=== PATIENT | female | born 1935 | race Caucasian/White ===

== ENCOUNTER → 2023-10-29 13:59 | Outpatient (REF) | payer MEDICARE, SELFPAY | LOC: HWRAD 13:59 | PROVIDERS: ATTENDING PHYSICIAN Family Medicine | DX: M54.6 Pain in thoracic spine (principal); R07.81 Pleurodynia; M81.0 Age-related osteoporosis without current pathological fracture | CPT/HCPCS: 71101; 72072 ==

== ENCOUNTER → 2023-11-05 07:07 | Outpatient (REF) | payer MEDICARE, SELFPAY | LOC: HWRAD 07:07 | PROVIDERS: ATTENDING PHYSICIAN Family Medicine | DX: R93.89 Abnormal findings on diagnostic imaging of other specified body structures (principal) | CPT/HCPCS: 71250 ==

== ENCOUNTER → 2023-12-24 06:24 | Day surgery (SDC) | payer MEDICARE, SELFPAY | LOC: GI 06:24 | PROVIDERS: ATTENDING PHYSICIAN Internal Medicine Gastroenterology | DX: R93.3 Abnormal findings on diagnostic imaging of other parts of digestive tract (principal); K64.8 Other hemorrhoids; K57.30 Diverticulosis of large intestine without perforation or abscess without bleeding; K63.89 Other specified diseases of intestine; D12.3 Benign neoplasm of transverse colon; D12.4 Benign neoplasm of descending colon | CPT/HCPCS: 45385; 45380; 88305 ==

== ENCOUNTER 2024-01-21 11:16 | Emergency (ER) | payer MEDICARE, SELFPAY ==
[2024-01-21 11:18] VITALS: BP 143/59
--- NOTE | 2024-01-21 12:35 | ED.GENMED ---
History of Present Illness
General
Chief Complaint: Fall
Source: patient and family
Exam Limitations: dementia
Time Seen by Provider: 01/21/24 12:03
Nursing documentation reviewed up to this point in time: agreed with
History of Present Illness
History of Present Illness:
88 y/o F with h/o cad, htn, hld, mild dementia
had a fall last night when she was getting her things from the car, she didn't see a cooler on the ground and tripped and landed on her face on the asphalt. she had no LOC. recalls the event.
mild swelling/bruising right lateral superior orbit and pain in the righ tribs with omvement
no confusion new from basleine poor memory, sob, weakness, nubmness, abd pain, back pain, hip pain
pt apparently has had some concern for abnormal PET scan uptake in the setting of previous colon cancer, uptake in upper spine and lung that is just being surveilled at this time
she has not had any lower back pain, upper back pain from fall
no thinners
tetanus unknown
Past History
Past History
ED Past Medical History: CAD, GERD, HTN, Hypercholesterolemia, Hypothyroidism, Psychiatric (Anxiety) and Other (Migraine cephalgias, irritable bowel syndrome. Microscopic colitis. Sleep apnea, Ulcers, Hiatal hernia)
ED Past Surgical History: Bowel resection, Cardiac (History of coronary stent), Orthopedic (Left carpal tunnel. Right and left knee surgery. Left ankle surgery, Rotator cuff surgery) and Other (Thyroidectomy)
Social History
Tobacco: Former smoker
Alcohol: Occasional
Drug: None
Personal:
Living: assisted living ([facility])
Employment: Retired
Family History
Family History: Hypertension
Review of Systems
Review of Systems
Allergies reviewed?: Yes
All Other Systems: Not applicable
Phy Exam
Physical Exam
Physical Exam:
GENERAL: Alert , in no apparent distress
HEAD: R superior lateral orbital swellign/hematoma mild and few superficial abrasions
NECK: no midline tenderness, active ROM intact, no paraspinal muscle tenderness; pain with rotation of neck
EYE: pupils equal and reactive, EOMs intact. no subconjunctival hemorrhage
ENT: o/p clr, mmm. no hemotympanum
CARDIAC: Regular rate and rhythm, no edema
chest wall: righ tlateral rib tendneress, mid ribs
LUNGS: Clear breath sounds bilaterally, no acute respiratory distress, no wheezes/rales/rhonchi
ABDOMEN: Soft, without focal tenderness, no r/g, no cvat
NEUROLOGICAL: Alert and oriented, no focal neuro deficits, CN intact, 5/5 strength, sensation intact
SKIN: Warm and dry,
MUSCULOSKELETAL: No edema, well perfused.
PSYCH: Normal and appropriate interaction.
Course
Orders/Labs/Results
Orders:
Orders
01/21/24 12:29
CT Cervical Spine W/o Iv Contr Urgent
Comment:
Reason For Exam: fall right sided pain
CT Chest W/o Iv Contrast Urgent
Comment:
Reason For Exam: fall right rib pain, h/o back lytic lesion?
CT Head W/o Iv Contrast Urgent
Comment:
Reason For Exam: fall right upper orbital hematoma
Tetanus/Diphth/Acelpertussis [Adacel] 0.5 ml IM .ONCE ONE
Vital Signs
Initial and Last Documented VS:
Initial Vital Signs
Temp Pulse Resp BP Pulse Ox
98.9 F 68 14 143/59 96
01/21/24 11:18 01/21/24 11:18 01/21/24 11:18 01/21/24 11:18 01/21/24 11:18
Last Documented Vital Signs
Temp Pulse Resp BP Pulse Ox
98.9 F 68 14 134/67 97
01/21/24 11:18 01/21/24 11:18 01/21/24 11:18 01/21/24 15:01 01/21/24 15:15
MDM/Problems Addressed
Differential Diagnosis Includes:
contusion, rib fx, head injury
MDM/Problems Addressed:
88 y/o F with h/o cad
no thinners
some poor memory and poor calance, frequent falls
tripped last night over a cooler whne they were unpackign their car and fell onto ground hitting face
also right ribs
no LOC, no vomiting, no headache
mild bruising to face, an dpain in right ribs
no sob
well appearing
contsuion/abrasions right forehead region
neck notnender midlin but pain with rotation
right rib tenderness, no bruising
abdomen nontender
pelvis nomrmal
walking well
ct head/neck/chest no trauma
known pulm nodules seen on PET scan
d/c home uincentive spirometer
*Critical Care Note
Total Time (30-74mins, 75-104mins- exclusive of procedures): Not Applicable
ED Attending Note
-
Portions of this chart may have been created with voice recognition software.� Occasional wrong word or��sound alike� substitutions may have occurred due to the inherent limitations of voice recognition software.
Discharge Plan
Departure
Patient Disposition: Home (Routine Discharge)
Date of Disposition: 01/21/24
Time of Disposition: 15:20
Patient with high blood pressure during this ER visit?: No
Condition: Fair
Covid-19: Not Applicable
Discharge Problem:
Minor closed head injury, Contusion of face, Contusion of rib
Instructions: Head Injury in Adults (DC), Contusion (DC)
Prescriptions:
No Action
aspirin 81 MG tablet,delayed release (DR/EC)
81 mg PO DAILY
metoprolol succinate 25 MG tablet extended release 24 hr
25 mg PO DAILY
cyanocobalamin (vitamin B-12) 1,000 MCG tablet
500 mcg PO DAILY
atorvastatin 10 MG tablet
10 mg PO DAILY
levothyroxine 75 MCG tablet
75 mcg PO DAILY
ibuprofen 200 MG tablet
400 mg PO DAILYPRN PRN (Reason: MILD PAIN)
multivitamin with folic acid [Tab-A-Byron] 1 TABLET tablet
1 tab PO DAILY
duloxetine 20 mg Capsule,Delayed Release(Dr/Ec)
20 mg PO DAILY
Florastor
1 tab PO DAILY
Referrals:
Tita Ovalles DO [Family Provider] -
Activity Restrictions/Additional Instructions:
Your CAT scans did not show any signs of fracture. You likely bruised your ribs in your face. Ice off-and-on. Use the incentive spirometer while you are awake to make sure you do not get pneumonia. Do this every 2 hours. Take Tylenol as needed
for pain. Return for severe symptoms like trouble breathing, fever, cough, confusion, severe headache or any concerns.
Interventions
Interventions:
*Risk Screen - Suicide Last Done: 01/21/24 13:13
*General Assessment Last Done: 01/21/24 11:18
*Neglect/Abuse Screening Last Done: 01/21/24 13:13
ED- Fall Risk Assessment Last Done: 01/21/24 13:13
*ED COVID-19 Vaccine History Last Done: 01/21/24 11:18
*Nursing Disposition Last Done: 01/21/24 15:32
ED-Musculoskeletal Assessment Last Done: 01/21/24 13:13
ED- Neurological Assessment Last Done: 01/21/24 13:13
ED-Skin Assessment Last Done: 01/21/24 13:13
Discharge Date and Time
Discharge Date/Time: 01/21/24 15:33
Print Language: BELARUSIAN
[2024-01-21] MEDS: ADACEL 0.5 ML IM (12:47)
[2024-01-21 13:09] VITALS: BP 150/78
[2024-01-21 14:41] VITALS: BP 124/62
[2024-01-21 15:01] VITALS: BP 134/67
== END 2024-01-21 15:33 | disposition home or self-care (01) ==
LOC: EMR 11:16
PROVIDERS: EMERGENCY PHYSICIAN Emergency Medicine; FAMILY PHYSICIAN Family Medicine
DX: S00.83XA Contusion of other part of head, initial encounter (principal); S20.219A Contusion of unspecified front wall of thorax, initial encounter; S40.021A Contusion of right upper arm, initial encounter; S00.81XA Abrasion of other part of head, initial encounter; S09.90XA Unspecified injury of head, initial encounter; W18.09XA Striking against other object with subsequent fall, initial encounter; Y93.89 Activity, other specified; Z23 Encounter for immunization; I25.10 Atherosclerotic heart disease of native coronary artery without angina pectoris; I10 Essential (primary) hypertension; F03.A4 Unspecified dementia, mild, with anxiety; E03.9 Hypothyroidism, unspecified; G43.909 Migraine, unspecified, not intractable, without status migrainosus; K21.9 Gastro-esophageal reflux disease without esophagitis; E78.00 Pure hypercholesterolemia, unspecified; K58.9 Irritable bowel syndrome, unspecified; M19.90 Unspecified osteoarthritis, unspecified site; M81.0 Age-related osteoporosis without current pathological fracture; G47.30 Sleep apnea, unspecified; K52.89 Other specified noninfective gastroenteritis and colitis; Z98.0 Intestinal bypass and anastomosis status; Z95.5 Presence of coronary angioplasty implant and graft; Z85.038 Personal history of other malignant neoplasm of large intestine; Z87.891 Personal history of nicotine dependence; R29.6 Repeated falls
CPT/HCPCS: 99284; 90471; 70450; 71250; 72125; 90715

== ENCOUNTER → 2024-02-22 11:21 | Outpatient (REF) | payer MEDICARE, SELFPAY | LOC: HWRAD 11:21 | PROVIDERS: ATTENDING PHYSICIAN Internal Medicine Critical Care Medicine; FAMILY PHYSICIAN Family Medicine | DX: R91.1 Solitary pulmonary nodule (principal) | CPT/HCPCS: 71250 ==

== ENCOUNTER 2024-06-13 12:35 | Emergency (ER) | payer MEDICARE, SELFPAY ==
[2024-06-13 12:38] VITALS: BP 140/57
[2024-06-13 12:39] VITALS: BP 140/57
[2024-06-13 12:59] LABS: % Basophils 0.9 % (0-2); % Eosinophils 2.1 % (0-6); % Immature Granulocytes 0.2 % (0-0.5); % Monocytes 7.2 % (1.7-9.3); % Neutrophils 62.6 % (42.2-75.2); Absolute Eosinophils 0.1 10^3/uL (0-0.7); Absolute Lymphocytes 1.2 10^3/uL (1.2-3.4); Absolute Monocytes 0.3 10^3/uL (0.1-0.6); Absolute Neutrophils 2.7 10^3/uL (1.4-6.5); Hematocrit 40.6 % (37.0-47.0); Hemoglobin 13.7 g/dL (12.0-16.0); Mean Corp Hgb Conc. 33.7 g/dL (33.0-37.0); Mean Corpuscular Hgb 32.9 pg (27.0-31.0); Mean Corpuscular Volume 97.4 fL (81.0-99.0); Mean Platelet Volume 9.9 fL (7.4-10.4); Nucleated Red Blood Cells % 0 %; Platelet Count 231 10^3/uL (130-400); Red Blood Cell Count 4.17 10^6/uL (4.20-5.40); Red Cell Dist. Width 12.7 % (11.5-14.5); White Blood Cell Count 4.3 10^3/uL (4.8-10.8)
[2024-06-13 13:00] VITALS: BP 125/59
--- NOTE | 2024-06-13 13:06 | ED.GENMED ---
History of Present Illness
<Gloria Harrison PA-C - Last Filed: 06/13/24 17:57>
General
Chief Complaint: Chest Pain
Source: patient and spouse (Spoke to patient's on phone)
Exam Limitations: dementia
Time Seen by Provider: 06/13/24 12:38
Nursing documentation reviewed up to this point in time: agreed with
History of Present Illness
History of Present Illness:
Patient is an 88-year-old female with history dementia, CAD, hypertension, hyperlipidemia presenting to the emergency department via EMS for evaluation of chest pain. Patient unable to contribute much to history due to dementia. Although�patient
does currently deny any complaints including chest pain, shortness of breath, dizziness/lightheadedness, severe back pain, headache, etc.
I did call and speak with patient's on the phone who states that patient was sitting on the couch this morning around 11:10 AM when she stated 'I am going to 'she then said she was having some left-sided chest discomfort. Patient has
been then promptly called 911. He states that she never appeared to be in any distress. Otherwise she is at her mental status and was acting normally this morning.
Past History
<Gloria Harrison PA-C - Last Filed: 06/13/24 17:57>
Past History
ED Past Medical History: CAD, GERD, HTN, Hypercholesterolemia, Hypothyroidism, Psychiatric (Anxiety) and Other (Migraine cephalgias, irritable bowel syndrome. Microscopic colitis. Sleep apnea, Ulcers, Hiatal hernia)
ED Past Surgical History: Bowel resection, Cardiac (History of coronary stent), Orthopedic (Left carpal tunnel. Right and left knee surgery. Left ankle surgery, Rotator cuff surgery) and Other (Thyroidectomy)
Social History
Tobacco: Former smoker
Alcohol: Occasional
Drug: None
Personal:
Living: assisted living ([facility])
Employment: Retired
Family History
Family History: Hypertension
Review of Systems
<Gloria Harrison PA-C - Last Filed: 06/13/24 17:57>
Review of Systems
Allergies reviewed?: Yes
All Other Systems: ROS reviewed and negative except as documented in HPI and ROS
Phy Exam
<Gloria Harrison PA-C - Last Filed: 06/13/24 17:57>
Physical Exam
Physical Exam:
Vitals: Mildly hypertensive, otherwise vital signs stable. Afebrile
General: Patient is well appearing, no acute distress
Skin: Warm and dry, no rashes or lesions
Head: Normocephalic, atraumatic
Eyes: Sclera nonicteric. EOMs intact. No nystagmus.
Throat: Protecting airway
Neck: Normal ROM, no cervical spine tenderness, no meningismus
Cardiac: Regular rate and rhythm, no murmurs. No reproducible chest wall tenderness. No rash
Pulm: Normal respiratory effort, no wheezes, rales, rhonchi heard on exam.
Abdomen: Abdomen soft. No abdominal tenderness.
Extremities: No evidence of cyanosis or edema. Palpable DP pulse bilaterally. Negative Homans' sign bilaterally
Neuro: AAOx1 to person, not place or time. No focal neurologic deficits
Psychiatric: Normal affect.
Scores
<Gloria Harrison PA-C - Last Filed: 06/13/24 17:57>
Heart Score for Chest Pain Patients
STEMI patient?: No
History: Slightly or Non-Suspicious
ECG: Normal
Age: >/= 65 years
Risk Factors: >/= 3 Risk Factors or History of CAD
Troponin: </= Normal Limit
Heart Score for Chest Pain Patients: 4
Heart Score Risk: 20.3% MACE over next 6 weeks
Course
<Gloria Harrison PA-C - Last Filed: 06/13/24 17:57>
Orders/Labs/Results
Orders:
Orders
06/13/24 12:40
Electrocardiogram (*1) Urgent
Reason for Study: Chest Pain
EKG- Treatment ONCE
06/13/24 12:46
CMP [Comprehensive Metabolic Panel] Urgent
Complete Blood Count/With Diff Urgent
Troponin I Urgent
06/13/24 12:54
CR Chest - 2 Views Urgent
Comment:
Reason For Exam: chest pain
06/13/24 15:07
Troponin I Urgent
06/13/24 15:45
Electrocardiogram (*1) Urgent
Reason for Study: Chest Pain
EKG- Treatment ONCE
06/13/24 15:52
Electrocardiogram (*1) Stat
Reason for Study: Chest Pain
Abnormal Lab Results
06/13/24
12:46
WBC 4.3 L 10^3/uL
(4.8-10.8)
RBC 4.17 L 10^6/uL
(4.20-5.40)
MCH 32.9 H pg
(27.0-31.0)
Glucose 130 H mg/dl
(70-99)
06/13/24 12:46
06/13/24 12:46
Vital Signs
Initial and Last Documented VS:
Initial Vital Signs
Temp Pulse Resp BP Pulse Ox
98.1 F 72 18 140/57 98
06/13/24 12:38 06/13/24 12:38 06/13/24 12:38 06/13/24 12:38 06/13/24 12:38
Last Documented Vital Signs
Temp Pulse Resp BP Pulse Ox
98.1 F 67 19 156/67 98
06/13/24 12:38 06/13/24 16:30 06/13/24 16:30 06/13/24 16:00 06/13/24 16:30
<Abner Melissa, DO - Last Filed: 06/13/24 13:50>
Orders/Labs/Results
Orders:
Orders
06/13/24 12:40
Electrocardiogram (*1) Urgent
Reason for Study: Chest Pain
EKG- Treatment ONCE
06/13/24 12:46
CMP [Comprehensive Metabolic Panel] Urgent
Complete Blood Count/With Diff Urgent
Troponin I Urgent
06/13/24 12:54
CR Chest - 2 Views Urgent
Comment:
Reason For Exam: chest pain
06/13/24 15:07
Troponin I Urgent
06/13/24 15:45
Electrocardiogram (*1) Urgent
Reason for Study: Chest Pain
EKG- Treatment ONCE
06/13/24 15:52
Electrocardiogram (*1) Stat
Reason for Study: Chest Pain
Abnormal Lab Results
06/13/24
12:46
WBC 4.3 L 10^3/uL
(4.8-10.8)
RBC 4.17 L 10^6/uL
(4.20-5.40)
MCH 32.9 H pg
(27.0-31.0)
Glucose 130 H mg/dl
(70-99)
06/13/24 12:46
06/13/24 12:46
Vital Signs
Initial and Last Documented VS:
Initial Vital Signs
Temp Pulse Resp BP Pulse Ox
98.1 F 72 18 140/57 98
06/13/24 12:38 06/13/24 12:38 06/13/24 12:38 06/13/24 12:38 06/13/24 12:38
Last Documented Vital Signs
Temp Pulse Resp BP Pulse Ox
98.1 F 67 19 156/67 98
06/13/24 12:38 06/13/24 16:30 06/13/24 16:30 06/13/24 16:00 06/13/24 16:30
<Gloria Harrison PA-C - Last Filed: 06/13/24 17:57>
MDM/Problems Addressed
Differential Diagnosis Includes:
Not limited to: Muscle strain, costochondritis, myocarditis, pneumonia, pericarditis, ACS
MDM/Problems Addressed:
88-year-old female history as documented presenting with chest pain. History taking very limited due to patient's history of dementia although did speak with patient's on phone. No associated shortness of breath or complains of back pain.
No history of infectious symptoms. Patient mildly hypertensive on arrival otherwise with stable vital signs. She is afebrile. On exam�patient is very well-appearing, no apparent distress. She denies any current symptoms. Cardio/pulmonary
assessment unremarkable. Abdomen soft and nontender. No evidence of rash to suggest zoster. No evidence or history of trauma. No lower extremity edema. Initial EKG shows normal sinus rhythm without any acute ischemic changes. Patient very
well-appearing. Will check labs and trend troponins. Will check chest x-ray.
Update: Labs reviewed. No clinically significant abnormalities. Initial troponin undetectable. Will repeat. Chest x-ray without acute disease. Patient remains asymptomatic and very well-appearing.
Update 4 PM. Repeat troponin remains undetectable with nonischemic EKG. Patient has been asymptomatic throughout entire duration of emergency department. She is ambulating independently around room without symptoms. At this point�patient has had
2 negative troponins, very low suspicion for acute coronary syndrome. Patient otherwise well-appearing and feels stable for discharge home with primary care/cardiology follow-up outpatient. Recurrent precautions discussed with on phone.
Patient will be transported home.
Chronic conditions affecting care:
CAD, hypertension, hyperlipidemia, dementia
Acute Exacerbation and/or Progression of Chronic Illness:
Acutely hypertensive
<Gloria Harrison PA-C - Last Filed: 06/13/24 17:57>
*Radiology
Radiology exam reviewed: preliminary read by ED provider (Reviewed by me-no acute disease) and radiology read reviewed
*Pulse Oximetry
Patient hypoxic: no
*EKG
Interpreted by ED Provider?: Yes
EKG Intrepretation Date: 06/13/24
Interpretation: normal
Comparison EKG: changes noted
Heart Rate: 63
Rate: normal
Rhythm: sinus
[place]: normal axis
Interval: normal QT interval
QRS Pattern: normal QRS
Ischemia: no ischemia
*Manager Development Interpretation
Rate: normal
Interpretation: normal
Heart Rate: 64
Rhythm: sinus
*Critical Care Note
Total Time (30-74mins, 75-104mins- exclusive of procedures): Not Applicable
<Gloria Harrison PA-C - Last Filed: 06/13/24 17:57>
Patient Management
Escalation/DeEscalation of care consider admission/obs:
Considered admission although patient asymptomatic with 2 negative troponins�doubt ACS or other acute cardiac emergency at this time
ED Attending Note
<Gloria Harrison PA-C - Last Filed: 06/13/24 17:57>
-
Portions of this chart may have been created with voice recognition software.� Occasional wrong word or��sound alike� substitutions may have occurred due to the inherent limitations of voice recognition software.
<Abner Melissa DO - Last Filed: 06/13/24 13:50>
ED Attending Note
Patient seen and examined by attending physician: Yes
I performed a history and physical exam of patient and discussed management with resident, I reviewed resident's note and agree with documented findings and plan of care.: Yes
ED Attending Note:
seen with PA, agree with ap
well appearing demented female with chest pain
Discharge Plan
Departure
Patient Disposition: Home (Routine Discharge)
Date of Disposition: 06/13/24
Time of Disposition: 15:56
Patient with high blood pressure during this ER visit?: Yes
Condition: Good
Covid-19: Not Applicable
Discharge Problem:
Chest pain
Instructions: Chest pain, BLOOD PRESSURE
Prescriptions:
No Action
aspirin 81 MG tablet,delayed release (DR/EC)
81 mg PO DAILY
metoprolol succinate 25 MG tablet extended release 24 hr
25 mg PO DAILY
cyanocobalamin (vitamin B-12) 1,000 MCG tablet
500 mcg PO DAILY
atorvastatin 10 MG tablet
10 mg PO DAILY
levothyroxine 75 MCG tablet
75 mcg PO DAILY
ibuprofen 200 MG tablet
400 mg PO DAILYPRN PRN (Reason: MILD PAIN)
multivitamin with folic acid [Tab-A-Byron] 1 TABLET tablet
1 tab PO DAILY
duloxetine 20 mg Capsule,Delayed Release(Dr/Ec)
20 mg PO DAILY
Florastor
1 tab PO DAILY
Referrals:
Marita Fowler MD [Family Provider] - Follow up in 5-7 days
Activity Restrictions/Additional Instructions:
RETURN TO THE EMERGENCY DEPARTMENT WITH ANY CHEST PAIN, SHORTNESS OF BREATH/DIFFICULTY BREATHING, WORSENING IN CURRENT SYMPTOMS, OR ANY OTHER CONCERNS
-Continue to take your medications as prescribed. Follow-up with primary care/cardiology for further evaluation/management as needed.
-Stay well-hydrated and get plenty of rest.
Monitor your symptoms closely and return to the emergency department with any acute worsening/new symptoms or any other concerns
Interventions
Interventions:
*Risk Screen - Suicide Last Done: 06/13/24 12:38
*General Assessment Last Done: 06/13/24 12:38
*Neglect/Abuse Screening Last Done: 06/13/24 12:38
ED- Fall Risk Assessment Last Done: 06/13/24 16:47
*ED COVID-19 Vaccine History Last Done: 06/13/24 12:38
*Nursing Disposition Last Done: 06/13/24 16:47
ED- Cardiac Assessment Last Done: 06/13/24 12:38
Discharge Date and Time
Discharge Date/Time: 06/13/24 16:48
Print Language: GERMAN
[2024-06-13 13:12] LABS: ALT (SGPT) 16 U/L (0-35); AST (SGOT) 26 U/L (14-36); Alkaline Phosphatase 73 U/L (38-126); Blood Urea Nitrogen 14 mg/dl (7-17); Calcium 8.9 mg/dl (8.4-10.2); Carbon Dioxide 25 mmol/L (22-30); Chloride 105 mmol/L (98-107); Glucose 130 mg/dl (70-99); Potassium 4.2 mmol/L (3.5-5.1); Sodium 139 mmol/L (135-145); Total Bilirubin 0.7 mg/dl (0.2-1.3); Total Protein 6.5 g/dl (6.3-8.2); eGFR > 60.00
[2024-06-13 13:22] LABS: Troponin I < 0.012 ng/ml
[2024-06-13 14:00] VITALS: BP 127/67
[2024-06-13 15:06] VITALS: BP 133/79
[2024-06-13 15:40] LABS: Troponin I < 0.012 ng/ml
[2024-06-13 16:00] VITALS: BP 156/67
== END 2024-06-13 16:48 | disposition home or self-care (01) ==
LOC: EMR 12:35
PROVIDERS: Physician Assistant; EMERGENCY PHYSICIAN Emergency Medicine; FAMILY PHYSICIAN Internal Medicine Geriatric Medicine
DX: R07.89 Other chest pain (principal); I25.10 Atherosclerotic heart disease of native coronary artery without angina pectoris; I10 Essential (primary) hypertension; E78.00 Pure hypercholesterolemia, unspecified; E03.9 Hypothyroidism, unspecified; F03.94 Unspecified dementia, unspecified severity, with anxiety; G47.30 Sleep apnea, unspecified; I49.1 Atrial premature depolarization; K21.9 Gastro-esophageal reflux disease without esophagitis; K58.9 Irritable bowel syndrome, unspecified; Z82.49 Family history of ischemic heart disease and other diseases of the circulatory system; Z87.891 Personal history of nicotine dependence; Z95.5 Presence of coronary angioplasty implant and graft
CPT/HCPCS: 99283; 71046; 80053; 84484; 85025; 93005

== ENCOUNTER → 2024-08-22 10:25 | Outpatient (REF) | payer MEDICARE, SELFPAY | LOC: HWRAD 10:25 | PROVIDERS: ATTENDING PHYSICIAN Internal Medicine Critical Care Medicine; FAMILY PHYSICIAN Internal Medicine Geriatric Medicine | DX: R91.8 Other nonspecific abnormal finding of lung field (principal) | CPT/HCPCS: 71250 ==

== ENCOUNTER 2024-09-29 15:46 | Emergency (ER) | payer MEDICARE, SELFPAY ==
[2024-09-29 16:03] VITALS: BP 145/82
--- NOTE | 2024-09-29 18:02 | ED.GENMED ---
History of Present Illness
General
Chief Complaint: Abdominal Pain
Time Seen by Provider: 09/29/24 17:58
History of Present Illness
History of Present Illness:
TIME OF INITIAL ENCOUNTER:
HPI: The patient comes in due to abdominal pain. She is seen at [facility] and was recommended to come here for evaluation including CT imaging. She has a history of dementia and is a very limited historian. I spoke to the at bedside.
He tells me that over the last several months, the patient has been having intermittent episodes of severe abdominal pain primarily in the central area of the abdomen. There has been weight loss. At times she has had poor p.o. intake. There has
not been any vomiting or diarrhea. She is known to Dr. Ji and has an appointment this coming Thursday. She saw her provider at [facility] who wanted her to come in here for further evaluation. Dr. Ji put the patient on Prilosec 3
days ago.
EXAM:
GENERAL: Appears in no distress
HEENT: Moist oral mucosa
CARDIOVASCULAR: Regular rate and rhythm
PULMONARY: No respiratory distress, breathing is nonlabored, equal and clear breath sounds
ABDOMEN: Soft and nontender with no peritoneal signs
NEUROLOGIC: The patient has evidence of dementia, not oriented to month or place, strength is equal in all extremities
EXTREMITIES: Moves all extremities equally, no tenderness, trace lower extremity edema
PYSCHIATRIC: Very limited historian, poor insight and judgment
NUMBER AND COMPLEXITY OF PROBLEMS ADDRESSED AT THE ENCOUNTER
� Chronic conditions affecting care: Dementia, constipation, 'stomach ulcers', CAD, high blood pressure, hiatal hernia
� Acute Exacerbation and/or Progression of Chronic Illness: This is an acute but recurring problem
� Differential Diagnosis includes: Exacerbation of hiatal hernia, stomach ulcers, gastritis, duodenitis, bowel perforation unlikely as she has no significant tenderness
AMOUNT AND/OR COMPLEXITY OF DATA TO BE REVIEWED AND ANALYZED
� I performed an independent evaluation of and my interpretation is:
EKG: Sinus 78, nonspecific ST abnormality, PACs
CT: CAT scan of the abdomen pelvis shows no acute abnormality
X-rays:
Laboratory Studies: Patient's white count and hemoglobin are normal, chemistries including lipase and LFTs normal
Other:
� Review of other/old records: Earlier this year, the patient was seen in the emerged part with chest pain
� Clinical information was obtained by an independent historian: I spoke to the at bedside his main historian
� Prescriptions/Medications Considered but not given:
� Further testing considered but not performed:
RISK OF COMPLICATIONS AND/OR MORBIDITY OR MORTALITY OF PATIENT MANAGEMENT
� Social determinants of health affecting care: Patient resides in [facility]
� Discussion with other providers:
� Escalation of care including admission/observation vs risk of discharge considered: The patient has very minimal abdominal tenderness and is well-appearing. CT imaging and labs obtained but were unremarkable. Unclear
etiology. She has follow-up with Dr. Ji this coming week and has started Prilosec a couple of days ago.
ANY OTHER UPDATES:
8 PM: I reassessed patient, she appears comfortable. Unclear etiology of patient's symptoms over the last few months.
Past History
Past History
ED Past Medical History: CAD, GERD, HTN, Hypercholesterolemia, Hypothyroidism, Psychiatric (Anxiety) and Other (Migraine cephalgias, irritable bowel syndrome. Microscopic colitis. Sleep apnea, Ulcers, Hiatal hernia)
ED Past Surgical History: Bowel resection, Cardiac (History of coronary stent), Orthopedic (Left carpal tunnel. Right and left knee surgery. Left ankle surgery, Rotator cuff surgery) and Other (Thyroidectomy)
Social History
Tobacco: Former smoker
Alcohol: Occasional
Drug: None
Personal:
Living: assisted living ([facility])
Employment: Retired
Family History
Family History: Hypertension
Phy Exam
Physical Exam
Physical Exam:
See HPI
Course
Orders/Labs/Results
Orders:
Orders
09/29/24 16:10
Electrocardiogram (*1) Urgent
Reason for Study: Abdominal Pain
09/29/24 16:12
EKG- Treatment ONCE
09/29/24 18:09
CT Abd/pelvis W Iv Cont Urgent
Comment:
Reason For Exam: diffuse intermittent severe abd pain
0.9% Sodium Chloride 500 ml [Nss] 500 ml IV BOLUS
09/29/24 18:28
Complete Blood Count/With Diff Urgent
Comprehensive Metabolic Panel Urgent
Lipase Urgent
Abnormal Lab Results
09/29/24
18:28
MCH 33.3 H pg
(27.0-31.0)
Glucose 108 H mg/dl
(70-99)
09/29/24 18:28
09/29/24 18:28
Vital Signs
Initial and Last Documented VS:
Initial Vital Signs
Temp Pulse Resp BP Pulse Ox
36.8 C 67 18 145/82 98
09/29/24 16:03 09/29/24 16:03 09/29/24 16:03 09/29/24 16:03 09/29/24 16:03
Last Documented Vital Signs
Temp Pulse Resp BP Pulse Ox
36.8 C 67 18 157/68 96
09/29/24 16:03 09/29/24 16:03 09/29/24 16:03 09/29/24 18:49 09/29/24 18:49
*Critical Care Note
Total Time (30-74mins, 75-104mins- exclusive of procedures): Not Applicable
ED Attending Note
-
Portions of this chart may have been created with voice recognition software.� Occasional wrong word or��sound alike� substitutions may have occurred due to the inherent limitations of voice recognition software.
Discharge Plan
Departure
Prescriptions:
No Action
aspirin 81 MG tablet,delayed release (DR/EC)
81 mg PO DAILY
metoprolol succinate 25 MG tablet extended release 24 hr
25 mg PO DAILY
cyanocobalamin (vitamin B-12) 1,000 MCG tablet
500 mcg PO DAILY
atorvastatin 10 MG tablet
10 mg PO DAILY
levothyroxine 75 MCG tablet
75 mcg PO DAILY
ibuprofen 200 MG tablet
400 mg PO DAILYPRN PRN (Reason: MILD PAIN)
multivitamin with folic acid [Tab-A-Byron] 1 TABLET tablet
1 tab PO DAILY
duloxetine 20 mg Capsule,Delayed Release(Dr/Ec)
20 mg PO DAILY
Florastor
1 tab PO DAILY
Referrals:
Marita Fowler MD [Family Provider] -
Interventions
Interventions:
*Risk Screen - Suicide Last Done: 09/29/24 18:50
*General Assessment Last Done: 09/29/24 18:50
*Neglect/Abuse Screening Last Done: 09/29/24 18:50
*ED- Fall Risk Assessment Last Done: 09/29/24 18:50
*ED COVID-19 Vaccine History Last Done: 09/29/24 16:03
BR-[id number]-Vtxvshcdcp Assessment Last Done: 09/29/24 18:32
Discharge Date and Time
Print Language: POLISH
[2024-09-29 18:38] LABS: % Basophils 1.1 % (0-2); % Lymphocytes 24.1 % (20.5-51.1); % Monocytes 6.3 % (1.7-9.3); % Neutrophils 67.5 % (42.2-75.2); Absolute Basophils 0.1 10^3/uL (0-0.2); Absolute Eosinophils 0.1 10^3/uL (0-0.7); Absolute Lymphocytes 1.3 10^3/uL (1.2-3.4); Absolute Monocytes 0.3 10^3/uL (0.1-0.6); Absolute Neutrophils 3.5 10^3/uL (1.4-6.5); Hematocrit 43.9 % (37.0-47.0); Hemoglobin 14.9 g/dL (12.0-16.0); Mean Corp Hgb Conc. 33.9 g/dL (33.0-37.0); Mean Corpuscular Hgb 33.3 pg (27.0-31.0); Mean Corpuscular Volume 98.2 fL (81.0-99.0); Mean Platelet Volume 9.9 fL (7.4-10.4); Nucleated Red Blood Cells % 0 %; Platelet Count 246 10^3/uL (130-400); Red Blood Cell Count 4.47 10^6/uL (4.20-5.40); Red Cell Dist. Width 12.6 % (11.5-14.5); White Blood Cell Count 5.2 10^3/uL (4.8-10.8)
[2024-09-29 18:49] VITALS: BP 157/68
[2024-09-29] MEDS: NSS 500 IV (18:50)
[2024-09-29 19:01] LABS: ALT (SGPT) 17 U/L (0-35); AST (SGOT) 31 U/L (14-36); Albumin 4.3 g/dl (3.5-5.0); Alkaline Phosphatase 68 U/L (38-126); Blood Urea Nitrogen 15 mg/dl (7-17); Calcium 9.3 mg/dl (8.4-10.2); Carbon Dioxide 26 mmol/L (22-30); Chloride 107 mmol/L (98-107); Glucose 108 mg/dl (70-99); Lipase 158 U/L (23-300); Potassium 4.6 mmol/L (3.5-5.1); Sodium 141 mmol/L (135-145); Total Bilirubin 1.1 mg/dl (0.2-1.3); Total Protein 7.4 g/dl (6.3-8.2); eGFR > 60.00
[2024-09-29 20:25] VITALS: BP 155/66
== END 2024-09-29 20:40 | disposition home or self-care (01) ==
LOC: EMR 15:46
PROVIDERS: Emergency Medicine; EMERGENCY PHYSICIAN Emergency Medicine; FAMILY PHYSICIAN Internal Medicine Geriatric Medicine
DX: R10.9 Unspecified abdominal pain (principal); F03.94 Unspecified dementia, unspecified severity, with anxiety; I25.10 Atherosclerotic heart disease of native coronary artery without angina pectoris; I10 Essential (primary) hypertension; E78.00 Pure hypercholesterolemia, unspecified; G47.30 Sleep apnea, unspecified; E03.9 Hypothyroidism, unspecified; Z87.891 Personal history of nicotine dependence
CPT/HCPCS: 99284; 74177; 80053; 83690; 85025; 93005; Q9967